=== PATIENT | male | born 1970 | race Caucasian/White ===

== ENCOUNTER 2020-10-09 13:42 | Outpatient (REF) | payer BC, SELFPAY ==
[2020-10-09 14:38] LABS: Blood Urea Nitrogen 14 mg/dL (9-16); Estimated Glomerular Filt Rate > 60
== END 2020-10-09 13:43 | disposition home or self-care (01) ==
LOC: HO.LAB 13:42
PROVIDERS: PCP Nurse Practitioner Family; Visit Provider Psychiatry & Neurology Neurology
DX: G45.4 Transient global amnesia (principal); M54.12 Radiculopathy, cervical region
CPT/HCPCS: 36415; 82565; 84520

== ENCOUNTER 2020-10-10 15:19 | Outpatient (REF) | payer BC, SELFPAY ==
--- NOTE | ~2020-10-10 | CT_ITS ---
EXAMINATION: CT ANGIOGRAM BRAIN, HEAD CLINICAL INFORMATION: 50-year-old with transient global amnesia. COMPARISON: None TECHNIQUE: Test bolus sequences followed by intravenous administration 100 mL of Omnipaque 350 intravenous contrast. Helical imaging was performed in the axial plane from the skull base to the vertex. Delayed postcontrast imaging of the head was also performed. The data was processed at the cytology technologist workstation for generation of MIP sequences. Three-dimensional volume rendered reformatted images were also generated at an offline 3-D workstation. This CT examination was performed using dose optimization techniques as appropriate, variously including the following: *Automated exposure control *Adjustment of mA and/or kV according to patient size (this includes techniques or standardized protocols for targeted exams where dose is matched to indication/reason for exam; i.e. extremities or head) *Use of iterative reconstruction technique DLP: 2435.00 mGy-cm CT BRAIN FINDINGS: Pre-contrast and delayed contrast-enhanced imaging demonstrates that the brain is normal in morphology and attenuation. No intracranial mass lesions, abnormal enhancement, extra-axial fluid collections, space-occupying process, or mass effect are identified. The ventricular system and subarachnoid spaces are within normal limits without hydrocephalus. There is normal opacification of the major dural venous sinuses. The bony structures are intact, and the visualized airspaces are unopacified. CTA BRAIN FINDINGS: The internal carotid arteries are normal in caliber bilaterally and patent. The A1 segments are bilaterally symmetric and normal in caliber with a normal appearance to the anterior communicating artery and normal caliber A2 segments. The M1 segments are normal in caliber bilaterally, with a normal appearance to the M2 branches, which appear to arborize normally. The intradural left vertebral artery is normal in caliber and is dominant. The intradural right vertebral artery is hypoplastic. The left posterior inferior cerebellar artery is visualized. The basilar artery is normal in caliber. The posterior cerebral arteries and superior cerebellar arteries are visualized bilaterally without focal stenosis or segmental occlusion. The posterior communicating arteries are not well visualized. CT/CT angio head IMPRESSION: 1. No large vessel occlusions and no evidence for significant focal intracranial arterial stenosis with normal enhancement noted in the major dural venous sinuses. 2. Normal pre- and post-contrast CT of the brain.
[2020-10-10] MEDS: iohexoL 350 MG/ML 100 ML INFUS..BTL IV (15:58)
== END 2020-10-10 15:20 | disposition home or self-care (01) ==
LOC: HO.CT 15:19
PROVIDERS: PCP Nurse Practitioner Family; Visit Provider Psychiatry & Neurology Neurology
DX: G45.4 Transient global amnesia (principal)
CPT/HCPCS: 70496; Q9967

== ENCOUNTER 2020-11-16 12:52 | Outpatient (REF) | payer BC, SELFPAY ==
--- NOTE | 2020-11-16 12:58 | EEG_ITS ---
The waking background activity consists of a well-defined moderate voltage 10 hertz posterior alpha frequency, intermixed anteriorly with low-voltage fast frequencies. Drowsiness is characterized by diffuse theta slowing. During sleep, symmetrical frontal central sleep spindles and vertex sharp transients developed over both hemispheres. Arousals are unremarkable. Cardiac rhythm reveals bradycardia down into the low 40s during the waking state at times. The patient remains asymptomatic. IMPRESSION: Normal 24-hour ambulatory EEG with the patient remained asymptomatic. Incidentally noted was sinus bradycardia into the 40s during the waking state. MD SYLVIA Bustillo/NOA / [id number]
== END 2020-11-16 12:53 | disposition home or self-care (01) ==
LOC: HO.NEURO 12:52
PROVIDERS: PCP Nurse Practitioner Family; Visit Provider Psychiatry & Neurology Neurology
DX: G45.4 Transient global amnesia (principal)
CPT/HCPCS: 95708; 95957

== ENCOUNTER 2023-07-23 10:19 | Outpatient (REF) | payer BC, SELFPAY ==
[2023-07-30 22:43] LABS: Acetylcholine Receptor Binding <0.30 nmol/L
[2023-08-01 14:58] LABS: Acetylcholine Recep Modulating 23
[2023-08-05 17:33] LABS: Acetylcholine Recept. Blocking <15 (<15)
== END 2023-07-23 10:20 | disposition home or self-care (01) ==
LOC: HO.LAB 10:19
PROVIDERS: PCP Nurse Practitioner Family; Visit Provider Psychiatry & Neurology Neurology
DX: H53.2 Diplopia (principal)
CPT/HCPCS: 36415; 86041; 86042; 86043

== ENCOUNTER 2023-09-02 18:43 | Outpatient (REF) | payer BC, SELFPAY ==
--- NOTE | ~2023-09-02 | MR_ITS ---
EXAMINATION: MR CERVICAL SPINE WITHOUT CONTRAST CLINICAL INFORMATION: Myelopathy. Spinal stenosis. COMPARISON: No relevant prior imaging. TECHNIQUE: MRI of the cervical spine was obtained using routine sequences without contrast. FINDINGS: There is slight retrolisthesis of C2 on C3, C3 on C4, and C4 on C5. Vertebral body heights are preserved. Type I degenerative endplate changes at C5-C6 and C6-C7. There is loss of intervertebral disc height and T2 signal intensity at multiple levels related to disc degeneration. The cervicomedullary junction is normal. Limited visualization of the posterior fossa reveals no abnormal finding. Occipital condyles and lateral C1 masses are intact. The atlantodental joint and both C1-C2 articular facets are unremarkable. At C2-C3 there is a bulging disc. No canal stenosis. No mass effect on the traversing or foraminal nerve roots. At C3-C4 there is a bulging disc. Mild canal stenosis. Uncovertebral joint spurring and facet degenerative change causes mild bilateral neuroforaminal encroachment. At C4-C5 there is a bulging disc. Mild canal stenosis. Uncovertebral joint spurring and facet degenerative change causes mild bilateral neuroforaminal encroachment. At C5-C6 there is a bulging disc and buckling of the ligamenta flava causing severe canal stenosis and cord compression. There is a short segment of increased intramedullary T2 signal intensity involving the spinal cord at this level. Uncovertebral joint spurring and facet degenerative change causes severe bilateral neural foramen encroachment. At C6-C7 there is a bulging disc and buckling of the ligamenta flava. Moderate canal stenosis. No abnormal intramedullary signal changes at this level. Uncovertebral joint spurring and facet degenerative change causes severe bilateral neuroforaminal encroachment. At C7-T1 the annular contour is normal. Bilateral facet degenerative change. No canal stenosis. Mild left neuroforaminal encroachment. Visualized soft tissues of the neck are normal. Vascular flow voids are maintained. MR/MR cervical spine wo con IMPRESSION: There is multilevel degenerative spondylosis of the cervical spine with slight retrolisthesis of C2 on C3, C3 on C4, and C4 on C5. There is severe canal stenosis at C5-C6 and moderate canal stenosis at C6-C7. There is a short segment of myelomalacia involving the cervical cord at the level of C5-C6. There are varying degrees of neuroforaminal encroachment related to uncovertebral joint spurring and facet degenerative change as described above.
== END 2023-09-02 18:44 | disposition home or self-care (01) ==
LOC: HO.MRI 18:43
PROVIDERS: PCP Nurse Practitioner Family; Visit Provider Psychiatry & Neurology Neurology
DX: M54.12 Radiculopathy, cervical region (principal); M48.02 Spinal stenosis, cervical region
CPT/HCPCS: 72141